=== PATIENT | female | born 1995 | race Hispanic/Latino ===

== ENCOUNTER 2016-08-25 16:32 | Emergency (ER) | payer OTHER ==
[~2016-08-25] VITALS: Ht 149.9 cm; Wt 44.9 kg
[2016-08-25 18:01] LABS: HEMATOCRIT 38.4 % (36.0-46.0); MCH 29.6 PG (29.0-34.0); MCHC 34.9 G/DL (30.0-36.0); MCV 84.8 FL (83-99); MEAN PLAT.VOLUME 10.4 uM^3 (9.5-12.4); PLATELET COUNT 252 K/uL (156-360); RBC DIS.WIDTH-CV 12.3 % (11.8-14.6); RBC DIS.WIDTH-SD 37.6 % (39-53); RED BLOOD COUNT 4.53 M/uL (3.80-5.20); WHITE BLOOD COUNT 14.6 K/uL (4.1-10.2)
[2016-08-25 18:13] LABS: CHLORIDE 105 mEq/L (99-109); SODIUM 137 mEq/L (136-147)
[2016-08-25 18:16] LABS: GLUCOSE 85 mg/dL (70-99)
[2016-08-25 18:17] LABS: ANION GAP 9 MEQ/L (2-14)
[2016-08-25 18:18] LABS: TOTAL BILIRUBIN 0.8 mg/dL (0.0-1.0)
[2016-08-25 18:19] LABS: ALKALINE PHOSPHATASE 49 IU/L (3-129); GFR ESTIMATE (CALCULATED) > 59 mL/min/
[2016-08-25 18:20] LABS: UREA NITROGEN (BUN) 11 mg/dL (9-23)
[2016-08-25 18:23] LABS: LIPASE 15 U/L (1.0-51.0)
[2016-08-25 18:30] LABS: QUANTITATIVE HCG < 4.0 MIU/ML
[2016-08-25 20:59] VITALS: BP 118/67
== END 2016-08-25 21:04 | disposition home or self-care (01) ==
LOC: EME 16:32
PROVIDERS: Emergency Medicine
DX: R10.31 Right lower quadrant pain (principal); K52.9 Noninfective gastroenteritis and colitis, unspecified
CPT/HCPCS: 74177; 80053; 81003; 83690; 84702; 85027; 99281; 99284

== ENCOUNTER 2016-10-09 11:13 | Emergency (ER) | payer OTHER ==
[~2016-10-09] VITALS: Ht 147.3 cm; Wt 44.0 kg
[2016-10-09 12:52] LABS: ADD MIUA? YES; BILIRUBIN NEGATIVE; BLOOD LARGE; COLOR YELLOW ((YELLOW)); GLUCOSE (STRIP) NEGATIVE; KETONES NEGATIVE; LEUKOCYTES MODERATE; NITRITE POSITIVE; PROTEIN (STRIP) 100; SPECIFIC GRAVITY 1.021 (1.000-1.030); UROBILINOGEN 0.2 MG/DL (0.2-1.0)
[2016-10-09 12:54] LABS: INTERNAL CONTROL VALID? YES
[2016-10-09 13:03] LABS: HEMATOCRIT 36.7 % (36.0-46.0); MCH 29.8 PG (29.0-34.0); MCHC 34.1 G/DL (30.0-36.0); MCV 87.6 FL (83-99); MEAN PLAT.VOLUME 10.7 uM^3 (9.5-12.4); PLATELET COUNT 232 K/uL (156-360); RBC DIS.WIDTH-CV 12.5 % (11.8-14.6); RBC DIS.WIDTH-SD 39.9 % (39-53); RED BLOOD COUNT 4.19 M/uL (3.80-5.20); WHITE BLOOD COUNT 9.2 K/uL (4.1-10.2)
[2016-10-09 13:14] LABS: CHLORIDE 107 mEq/L (99-109)
[2016-10-09 13:15] LABS: SODIUM 139 mEq/L (136-147)
[2016-10-09] MEDS ORDERED: BACTRIM,SEPT1 TABLET PO (13:15)
[2016-10-09] MEDS ORDERED: PYRIDIUM100 MG PO (13:15)
[2016-10-09 13:17] LABS: GLUCOSE 95 mg/dL (70-99)
[2016-10-09 13:18] LABS: ANION GAP 8 MEQ/L (2-14)
[2016-10-09 13:19] LABS: TOTAL BILIRUBIN 0.4 mg/dL (0.0-1.0)
[2016-10-09 13:20] LABS: ALKALINE PHOSPHATASE 38 IU/L (3-129); GFR ESTIMATE (CALCULATED) > 59 mL/min/
[2016-10-09 13:22] LABS: UREA NITROGEN (BUN) 11 mg/dL (9-23)
[2016-10-09 13:24] LABS: LIPASE 22 U/L (1.0-51.0)
[2016-10-09 13:32] LABS: BACTERIA 3+ /HPF; EPITHELIAL CELLS 1+ /HPF; MUCUS TRACE /LPF; RED BLOOD CELLS 15-20 /HPF (0-5); UCUL ADDED? YES; WHITE BLOOD CELLS 30-40 /HPF (0-5)
[2016-10-09 14:21] VITALS: BP 121/88
== END 2016-10-09 14:24 | disposition home or self-care (01) ==
LOC: EME 11:13
PROVIDERS: Nurse Practitioner Family
DX: N39.0 Urinary tract infection, site not specified (principal)
CPT/HCPCS: 80053; 81003; 83690; 84703; 85027; 87077; 87086; 87186; 99281; 99284

== ENCOUNTER 2017-09-12 01:33 | Emergency (ER) | payer OTHER ==
[~2017-09-12] VITALS: Ht 152.4 cm; Wt 44.7 kg
[~2017-09-12 01:33] MED LIST: BACTRIM,SEPT1 TABLET PO; PYRIDIUM100 MG PO
[2017-09-12 02:53] LABS: BASOPHIL (%) 0.4 % (0-1); EOSINOPHIL (%) 4.3 % (0-5); EOSINOPHIL COUNT 0.3 K/uL (0-0.3); HEMOGLOBIN 11.9 G/DL (11.9-15.5); IMMATURE GRANULOCYTE (%) 0.1 % (0.0-0.7); LYMPHOCYTE (%) 29.1 % (15-42); MCH 30.5 PG (29.0-34.0); MCV 87.2 FL (83-99); MONOCYTE (%) 10.4 % (3-12); MONOCYTE COUNT 0.7 K/uL (0-0.8); NEUTROPHIL (%) 55.7 % (45-76); NEUTROPHIL COUNT 3.7 K/uL (1.8-6.4); PLATELET COUNT 248 K/uL (156-360); RBC DIS.WIDTH-CV 12.4 % (11.8-14.6); RBC DIS.WIDTH-SD 39.4 % (39-53); WHITE BLOOD COUNT 6.7 K/uL (4.1-10.2)
[2017-09-12 03:02] LABS: CHLORIDE 107 mEq/L (99-109); SODIUM 140 mEq/L (136-147)
[2017-09-12 03:04] LABS: GLUCOSE 94 mg/dL (70-99)
[2017-09-12 03:07] LABS: CREATININE 0.8 mg/dL (0.6-1.3); GFR ESTIMATE (CALCULATED) > 59 mL/min/
[2017-09-12 03:08] LABS: UREA NITROGEN (BUN) 14 mg/dL (9-23)
[2017-09-12 03:15] LABS: QUANTITATIVE HCG < 4.0 MIU/ML
[2017-09-12 03:26] LABS: APPEARANCE SL.HAZY ((CLEAR)); BILIRUBIN NEGATIVE; BLOOD NEGATIVE; COLOR YELLOW ((YELLOW)); GLUCOSE (STRIP) NEGATIVE; KETONES NEGATIVE; LEUKOCYTES NEGATIVE; NITRITE NEGATIVE; PROTEIN (STRIP) NEGATIVE; SPECIFIC GRAVITY 1.024 (1.000-1.030)
[2017-09-12 03:29] LABS: BACTERIA NONE SEEN /HPF; EPITHELIAL CELLS RARE /HPF; MUCUS TRACE /LPF; RED BLOOD CELLS 0-5 /HPF (0-5); UCUL ADDED? NO; WHITE BLOOD CELLS 0-5 /HPF (0-5)
[2017-09-12] MEDS ORDERED: IBUPROFEN600 MG PO (06:05)
[2017-09-12 07:18] VITALS: BP 118/70
== END 2017-09-12 07:19 | disposition home or self-care (01) ==
LOC: EME 01:33
PROVIDERS: Emergency Medicine
DX: R10.2 Pelvic and perineal pain (principal); N63.10 Unspecified lump in the right breast, unspecified quadrant; N83.201 Unspecified ovarian cyst, right side
CPT/HCPCS: 76856; 80048; 81003; 84702; 85025; 93975; 99281; 99284